=== PATIENT | male | born 1935 | race Hispanic/Latino ===

== ENCOUNTER 2017-08-18 11:32 | Day surgery (SDC) | payer MEDICARE, BC ==
[2017-08-18 12:02] VITALS: BMI 22.9
[2017-08-18] MEDS ORDERED: Propofol 10 mg/ml Inj (20 ML) ONE (12:49)
[2017-08-18] MEDS ORDERED: Lactated Ringer's 500 ML IV ONE (13:00)
[2017-08-18 13:49] VITALS: O2SAT 99
[2017-08-18 14:27] VITALS: BP 121/77; PULSE 78; RESP 16; TEMP 97
== END 2017-08-18 14:25 | disposition home or self-care (01) ==
LOC: C.ENDO 11:32
PROVIDERS: ATTEND Internal Medicine
DX: C20 Malignant neoplasm of rectum (principal)
CPT/HCPCS: 45341; J2704; J7120